=== PATIENT | female | born 1985 | race African-American/Black ===

== ENCOUNTER 2021-05-17 19:39 | Emergency (ER) | payer MEDICAID, OTHER ==
[~2021-05-17] VITALS: Ht 157.5 cm; Wt 76.4 kg
[~2021-05-17 19:39] MED LIST: ALBUTEROL; DSS100 PO; FERR-89 PO; IBUP-2071 PO
[2021-05-17] MEDS ORDERED: PENICILLIN G BENZATHINE LA 2,400,000 UNITS/4 ML SYRINGE IM ONE (20:15)
[2021-05-17 20:32] VITALS: BP 121/63
== END 2021-05-17 20:33 | disposition home or self-care (01) ==
LOC: EMS 19:42
DX: A53.9 Syphilis, unspecified (principal); J45.909 Unspecified asthma, uncomplicated; F41.9 Anxiety disorder, unspecified; F17.210 Nicotine dependence, cigarettes, uncomplicated; Z88.6 Allergy status to analgesic agent
CPT/HCPCS: 96372; 99283; J0561